=== PATIENT | female | born 1990 | race Caucasian/White ===

== ENCOUNTER 2017-05-26 19:15 | Emergency (ER) | payer MEDICAID ==
[~2017-05-26] VITALS: Ht 157.5 cm; Wt 77.1 kg
[2017-05-26] MEDS ORDERED: ONDANSETRON ODT 4 MG TAB PO ONE (21:30)
[2017-05-26] MEDS ORDERED: HYDROcodone-ACET 10/325MG TAB PO ONE (21:30)
[2017-05-26 23:31] VITALS: BP 107/71
== END 2017-05-27 01:12 | disposition home or self-care (01) ==
LOC: ER 19:15 → EDUNIT# 19:15 → ER 05-27 01:12
DX: S16.1XXA Strain of muscle, fascia and tendon at neck level, initial encounter (principal); S39.012A Strain of muscle, fascia and tendon of lower back, initial encounter; J45.909 Unspecified asthma, uncomplicated; R51 Headache; M54.9 Dorsalgia, unspecified; M25.551 Pain in right hip; Z88.0 Allergy status to penicillin; Z87.11 Personal history of peptic ulcer disease; V43.52XA Car driver injured in collision with other type car in traffic accident, initial encounter; Y93.89 Activity, other specified; Y92.89 Other specified places as the place of occurrence of the external cause; Y99.8 Other external cause status
CPT/HCPCS: 36415; 70450; 72125; 72131; 80307; 80320; 84702; 99285; Q0162